=== PATIENT | male | born 1980 | race African-American/Black ===

== ENCOUNTER → 2017-06-17 | Outpatient (CLI) | payer SELFPAY ==
[~2017-06-17] MED LIST: SINCALIDE 3 MCG/VIAL INJ ONE
--- NOTE | 2017-06-17 12:21 | Diagnostic Imaging Report ---
PROCEDURE:ABDOMINAL ULTRASOUND COMPARISON:None. INDICATIONS:EPIGASTRIC PAIN FINDINGS: Liver: 12.9 cm. Normal hepatic parenchymal echogenicity. No focal mass. Main portal vein: 8.0 mm. Hepatopedal flow. Gallbladder: No echogenic calculi, gallbladder wall thickening, or pericholecystic fluid. Common Bile Duct: 4.0 mm. No echogenic filling defect. Sonographic Rivas's sign: Negative. Right kidney: 10.3 cm. No solid or cystic mass, echogenic calculi, or hydronephrosis. Normal parenchymal echogenicity. Left kidney: 11.5 cm. No solid or cystic mass, echogenic calculi, or hydronephrosis. Normal parenchymal echogenicity. Spleen: 9.1 cm. No focal mass. Pancreas: The visualized portions of the pancreas are normal. Inferior vena cava: Normal. Aorta: Normal. Ascites: None. CONCLUSION: No acute sonographic abnormality. Dictated by: Norm Harrison M.D. on 06/17/2017 at 12:21 Electronically approved by: Norm Harrison M.D. on 06/17/2017 at 12:21
--- NOTE | 2017-06-17 19:02 | Diagnostic Imaging Report ---
Hepatobiliary Scan with Gallbladder Ejection Fraction Clinical information: Chronic intermittent epigastric pain now with associated nausea. Report: Following intravenous administration of 7.2 millicuries of Tc-[id number] mebrofenin, dynamic images of the abdomen in the anterior projection were obtained through 30 minutes. Sincalide (CCK analog) 3.0 micrograms was administered intravenously over 30 minutes with additional imaging for determination of gallbladder ejection fraction. Perfusion to the liver is normal. Extraction of tracer from the blood pool by the liver parenchyma is normal. Tracer is seen promptly within the biliary tract. The gallbladder begins to fill by 8 minutes post-injection of tracer and fills adequately. Tracer is seen in the small bowel by 30 minutes. The gallbladder ejection fraction with administration of sincalide is 50% (normal greater than 40%). Impression: 1. Filling of the gallbladder excludes the diagnosis of acute cystic duct obstruction/acute cholecystitis. 2. Normal gallbladder ejection fraction of 50% does not support the clinical diagnosis of chronic cholecystitis/gallbladder dyskinesia. Signed by: Dr. Kamini Hathaway M.D. on 06/17/2017 6:58 PM
== END ==
LOC: US 09:19
PROVIDERS: ATTEND Internal Medicine Gastroenterology
DX: R10.13 Epigastric pain (principal)
CPT/HCPCS: 76700; 78227; A9537; J2805